=== PATIENT | female | born 1970 | race Hispanic/Latino ===

== ENCOUNTER 2016-08-01 15:08 | Outpatient (CLI) | payer BC ==
--- NOTE | 2016-08-02 09:15 | Mammography Report ---
A BILATERAL DIGITAL DIAGNOSTIC MAMMOGRAM with CAD and LEFT BREAST ULTRASOUND: 08/01/16 CLINICAL: Left breast pain and lump. COMPARISON:10/07/13 FINDINGS: The breasts are heterogeneously dense, which may obscure small masses.No mass, architectural distortion or suspicious calcifications . No mammographic abnormality at a left lower inner periareolar palpable marker. The right breast is negative. Ultrasound of the left breast in the area of the palpable lump demonstrated an irregular solid heterogeneous hypoechoic mass at 8 o'clock 2 cm from the nipple. It measures 1.2 x 0.9 x 0.7 cm and demonstrates mild posterior enhancement. The mass is superficial and close to the skin. IMPRESSION: A solid 1.2 cm left breast mass at 8 o'clock 2 cm from the nipple. BI-RADS CATEGORY: 4--Suspicious RECOMMENDATION: Ultrasound guided needle core biopsy of the left breast. I discussed the findings and the recommendation for ultrasound guided needle core biopsy of the left breast with the patient at the time of the examination. ACR BI-RADS MAMMOGRAPHIC CODES: 0 = Needs additional imaging evaluation; 1 = Negative; 2 = Benign; 3 = Probably benign; 4 = Suspicious; 5 = Malignant; 6 = Known biopsy-proven malignancy COMMENT: 1. Dense breast tissue, i.e., adenosis, fibrocystic changes, etc., may obscure an underlying neoplasm. 2. Approximately 10% of cancers are not detected with mammography. 3. A negative mammography report should not delay biopsy if a clinically suspicious mass is present. COMMENT: Patient follow-up letters are generated by our [employer] application.
== END 2016-08-01 15:09 | disposition home or self-care (01) ==
LOC: SPVWC 15:08
PROVIDERS: ATTEND Obstetrics & Gynecology
DX: N63 Unspecified lump in breast (principal); N64.4 Mastodynia
CPT/HCPCS: 76642; G0204; 77066

== ENCOUNTER 2016-08-08 12:52 | Outpatient (CLI) | payer BC ==
--- NOTE | 2016-08-08 14:25 | Mammography Report ---
LEFT DIGITAL DIAGNOSTIC MAMMOGRAM: 08/08/16 12:52:00 CLINICAL: For clip placement immediately status post ultrasound biopsy. COMPARISON:08/01/16 FINDINGS: A biopsy clip is now identified at 8 o'clock.The mass is not identified mammographically. IMPRESSION: Concordant clip placement status post ultrasound biopsy. BI-RADS CATEGORY: 4--Suspicious Pathology pending.
--- NOTE | 2016-08-08 14:34 | Ultrasound Report ---
ULTRASOUND GUIDED NEEDLE CORE BIOPSY LEFT BREAST WITH CLIP PLACEMENT: 08/08/16 CLINICAL: Left breast mass at 8 o'clock 2 cm from the nipple. COMPARISON :08/01/16 FINDINGS: The procedure was explained to the patient and informed consent was obtained. Ultrasound demonstrated the previously described mass.. I marked the breast with a felt tip marker and a time out was called. The skin was prepped with Betadine and anesthetized with 1% lidocaine. Needle core biopsy was performed through a tiny dermatotomy using ultrasound guidance, 2% lidocaine with epinephrine for deep anesthesia and a 14-gauge Achieve biopsy device. Imaging demonstrated satisfactory sampling. 3 cores were obtained and placed in formalin. A clip was deployed within the mass. The patient tolerated the procedure well and there were no apparent complications. Hemostasis was achieved with gentle pressure and a sterile dressing was applied. A two view mammogram demonstrated satisfactory placement of the clip. She left the department in good condition and was given instructions for wound care and followup. IMPRESSION: Uncomplicated ultrasound guided needle core biopsy with clip placement left breast.
== END 2016-08-08 12:53 | disposition home or self-care (01) ==
LOC: SPVWC 12:52
PROVIDERS: ATTEND Obstetrics & Gynecology
DX: N63 Unspecified lump in breast (principal)
CPT/HCPCS: 19083; A4648; G0206; 88305

== ENCOUNTER 2017-03-11 09:34 | Outpatient (CLI) | payer BC ==
--- NOTE | 2017-03-11 09:59 | Mammography Report ---
LEFT DIGITAL DIAGNOSTIC MAMMOGRAM with CAD: 03/11/17 00:00:00 CLINICAL: Follow-up status post benign biopsy. Biopsy on 08/08/16 revealed benign fibroadenoma. COMPARISON:08/01/16 FINDINGS: The breast is heterogeneously dense, which may obscure small masses.No mass, architectural distortion or suspicious calcifications. A periareolar biopsy clip at 8 o'clock correlates with the recent biopsy. IMPRESSION: No mammographic evidence of malignancy. BI-RADS CATEGORY: 2 -- Benign RECOMMENDATION: Return to routine mammographic screening. COMMENT: Patient follow-up letters are generated by our [employer] application.
== END 2017-03-11 09:35 | disposition home or self-care (01) ==
LOC: SPVWC 09:34
PROVIDERS: ATTEND Obstetrics & Gynecology
DX: R92.8 Other abnormal and inconclusive findings on diagnostic imaging of breast (principal)
CPT/HCPCS: G0206-LT